=== PATIENT | male | born 1985 | race Caucasian/White ===

== ENCOUNTER → 2020-12-18 16:58 | Outpatient (CLI) | payer OTHER, SELFPAY ==
--- NOTE | 2020-12-18 17:02 | RAD_ITS ---
EXAM: XR LUMBOSACRAL SPINE, 4 OR 5 VIEWS : 1985 CLINICAL INDICATION: BACK PAIN TECHNIQUE: Frontal, lateral and oblique views of the lumbar spine. This report was created using [employer] technology. COMPARISON: None. FINDINGS: VERTEBRAE: Unremarkable. Preserved vertebral body height. No fracture. No spondylolisthesis. Preservation of the normal lumbar lordosis. No significant facet arthropathy. DISC SPACES: No acute findings. Disc spaces are maintained. GASTROINTESTINAL TRACT: Unremarkable as visualized. Included bowel gas pattern is non-obstructive. RAD/L/S Spine Min 4 Views IMPRESSION: No evidence of lumbar spinal fracture or spondylolisthesis. at 0722 Reported and signed by: Marvin Ceron MD Electronically Signed: Marvin Ceron MD at 7:22 EDT Tel , Service support ,
== END ==
PROVIDERS: PCP Family Medicine; Referring Provider Family Medicine; Visit Provider Family Medicine
DX: M54.9 Dorsalgia, unspecified (principal)
CPT/HCPCS: 72110

== ENCOUNTER 2021-01-28 13:00 | Outpatient (RCR) | payer OTHER, SELFPAY ==
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
--- NOTE | 2021-01-28 13:32 | HP.PT.NRP ---
ZENON DONALD was seen in my office for initial evaluation on 12/24/20. The following Plan of Care was established for this patient: Initial Frequency: 2x /Week Initial Duration: 6 Weeks Patient/Client Instruction: Educate patient on: Plan of Care Therapeutic Exercise to Include: Strength training, Active ROM, Dynamic Lumbar Stabilization For the Purpose of:: To decrease pain, To improve ability to perform ADL's Cryotherapy (ice pack, ice massage): Yes Thermo therapy (hot pack): Yes For the Purpose of:: To decrease pain This patient was last seen in our office . Pertinent comments regarding their Physical therapy will appear below: At this point I will be discontinuing this patient from physical therapy. I would be happy to see this patient again in the future if found appropriate by the physician. Thank you! Abida Sims Balance/Gait/Functional tests - Balance/Special Test Scores Oswestry Low Back Score: 0
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
== END 2021-01-28 14:11 | disposition home or self-care (01) ==
LOC: PT 13:00
PROVIDERS: PCP Family Medicine; Referring Provider Family Medicine; Visit Provider Family Medicine
DX: M54.9 Dorsalgia, unspecified (principal)
CPT/HCPCS: 97110; 97161

== ENCOUNTER 2022-12-06 14:52 | Emergency (ER) | payer OTHER, SELFPAY ==
[2022-12-06 14:53] VITALS: BP 150/105; PULSE 91; RESP 16; TEMP 36.3; O2SAT 100; BMI 25.6
--- NOTE | 2022-12-06 15:00 | RAD_ITS ---
INDICATION: crush injury EXAMINATION/TECHNIQUE: X-RAY - RIGHT XR Hand Min 3 Views 3 VIEWS COMPARISON: None. FINDINGS: SOFT TISSUES: No soft tissue swelling or gas. No radiopaque foreign body. BONES/JOINTS: Almost nondisplaced angulated fracture of the metacarpal. Normal alignment. Preservation of the joint space.. No sclerotic or destructive changes observed. RAD/Hand Min 3 Views IMPRESSION: Fracture of the fifth metacarpal. Electronically Signed: Virgil Chisholm MD at 15:15 EDT ,
--- NOTE | 2022-12-06 15:41 | EDS_ITS ---
HPI History of Present Illness Chief Complaint: Upper Extremity Injury Informant: patient Narrative Narrative: 37-year-old male states that this morning he was doing some landscaping with a friend when he got his hand caught in between 2 rocks. His palm was up and the rock came down onto the palm. This resulted in swelling over the fourth and fifth metacarpal. He states that just prior to arrival he got playing baseball because he has a high pain tolerance and his noticed that there was swelling and suggested he should come to the emergency room. He is right- handed. He has not seen an orthopedic surgeon locally [facility] Allergy/AdvReac Type Severity Reaction Status Date / Time No Known Allergies Allergy Verified 12/06/22 14:53 ROS ROS ED Constitutional Constitutional ED: Denies chills or weight loss Eyes Eyes: Denies change in vision or diplopia ENT ENT ED: Denies ear pain, rhinorrhea or sore throat Cardiovascular Cardiovascular: Denies chest pain, orthopnea, palpitations or racing heartbeat Respiratory/Chest Respiratory/Chest: Denies cough, dyspnea or orthopnea Gastrointestinal Gastrointestinal: Denies abdominal pain, diarrhea, nausea or vomiting Genitourinary Genitourinary ED: Denies dysuria, hematuria or urinary frequency Musculoskeletal Musculoskeletal: Reports other Details: See HPI ; Denies arthralgias or myalgias Integumentary Denies abscess or rash Neurologic Neurologic: Denies headache(s) or weakness Psychiatric Psychiatric: Denies anxiety, depression, suicidal ideation or suicidal thoughts Endocrine Endocrinology: Denies polydipsia, polyphagia or polyuria Allergic/Immunologic Allergic/Immunologic ED: Denies mouth swelling, tongue swelling or urticaria EXAM Physical Exam Const Vital Signs: 12/06/22 14:53 Temperature 97.4 F L Temperature Source Temporal Pulse Rate 91 Respiratory Rate 16 Blood Pressure 150/105 H Blood Pressure Mean 120 Pulse Ox 100 Oxygen Delivery Method Room Air Positive well nourished and well developed General Appearance ED: well developed HEENT Reports normocephalic, head/scalp atraumatic and moist mucous membranes Eyes PERRL and EOMs intact bilaterally Neck no lymphadenopathy, supple and no JVD Resp normal respiratory effort and clear to auscultation bilaterally Cardio regular rate, regular rhythm and no murmurs GI normal to inspection, nondistended, normoactive bowel sounds and non-tender Palpation: soft Back/Spine no CVA tenderness and normal ROM Extremity Extremity Narrative: Patient is swelling and ecchymosis located over the dorsum of the right hand. There is no malrotation of the digits. Neurovascularly intact. Excellent capillary refill of all digits. General Extremety ED: Negative for edema General Extremity: Negative for edema Neuro oriented x3 and CN's II-XII intact bilaterally Sensorium / Orientation: alert Motor Exam: strength 5/5 throughout Psych mental status grossly normal Mood & Affect: Negative for depressed or tearful Skin no rashes or lesions noted and no wounds MDM MDM MDM Narrative Medical decision making narrative: My interpretation of the plain films of the right hand is a slightly displaced fracture of the fifth metacarpal. Patient was placed in Ortho-Glass ulnar gutter splint prefabricated. He was neurovascular intact pre and post application. Patient tolerated procedure well. He will be discharged home to follow-up with orthopedics Radiography Diagnostic Testing: Clinical Impression(s) from Imaging Studies Hand X-Ray 12/06/22 15:00 IMPRESSION: Fracture of the fifth metacarpal. Electronically Signed: Virgil Chisholm MD at 15:15 EDT , ADDENDUM: 12/06/22 1541 IMPRESSION: undefined Discharge Plan Triage Chief Complaint: Upper Extremity Injury ED Provider: Mervin Valencia Dx/Rx/DC Orders Primary Care Provider: Azalea Hurtado Referrals: Azalea Hurtado MD [Primary Care Provider] -
== END 2022-12-06 16:01 | disposition home or self-care (01) ==
LOC: ED 16:00
PROVIDERS: Emergency Provider Emergency Medicine; PCP Family Medicine; Visit Provider Emergency Medicine
DX: S62.306A Unspecified fracture of fifth metacarpal bone, right hand, initial encounter for closed fracture (principal); X58.XXXA Exposure to other specified factors, initial encounter
CPT/HCPCS: 29130; 73130; 99282

== ENCOUNTER 2022-12-18 10:30 | Outpatient (RCR) | payer OTHER, SELFPAY ==
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
== END 2022-12-18 19:00 | disposition home or self-care (01) ==
LOC: OT 10:30
PROVIDERS: PCP Family Medicine; Referring Provider Orthopaedic Surgery Sports Medicine; Visit Provider Orthopaedic Surgery Sports Medicine
DX: S62.308D Unspecified fracture of other metacarpal bone, subsequent encounter for fracture with routine healing (principal); S62.90XD Unspecified fracture of unspecified hand, subsequent encounter for fracture with routine healing
CPT/HCPCS: 97166; 97760